=== PATIENT | male | born 1965 | race American Indian/Alaskan Native ===

== ENCOUNTER 2017-08-09 15:07 | Emergency (ER) | payer SELFPAY ==
[2017-08-09] MEDS ORDERED: Sodium Chloride 0.9% 2.5 ML Syringe FLUSH PRN (15:26)
[2017-08-09] MEDS ORDERED: Sodium Chloride 0.9% 10 ML Syringe FLUSH PRN (15:26)
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
--- NOTE | 2017-08-09 16:10 | CR ---
EXAMINATION: Right hand HISTORY: Pain COMPARISON: None TECHNIQUE: 2 views FINDINGS/IMPRESSION: There is no acute osseous abnormality, dislocation, or fracture.. Bone mineraliz ation and joint spaces appear normal. Moderate soft tissue swelling noted overlying the fifth digit.
[2017-08-09] MEDS ORDERED: Ketorolac 30 MG/ML SDV IVPUSH ONE (16:13)
[2017-08-09 16:27] LABS: CHLORIDE,CL 104 mmol/L (98-110); SODIUM,NA 138 mmol/L (136-146)
== END 2017-08-09 17:17 ==
LOC: MW.ED 15:07
DX: S61.216A Laceration without foreign body of right little finger without damage to nail, initial encounter (principal); S61.210A Laceration without foreign body of right index finger without damage to nail, initial encounter; S63.91XA Sprain of unspecified part of right wrist and hand, initial encounter; F17.210 Nicotine dependence, cigarettes, uncomplicated; Z88.0 Allergy status to penicillin; W45.8XXA Other foreign body or object entering through skin, initial encounter
CPT/HCPCS: 36415; 73120; 80053; 85025; 87040; 96365; 96375; 99284; J1885; J3370; J7050